=== PATIENT | female | born 1955 | race Caucasian/White ===

== ENCOUNTER 2020-03-25 22:33 | Inpatient (IN) | payer BC ==
--- NOTE | 2020-03-25 22:56 | ED ---
Recheck HPI - General Chief Complaint: Abdominal Pain Stated Complaint: COVID+ Time Seen by Provider: 03/25/20 22:37 Source: patient, EMS Mode of arrival: EMS - Related Data Home Medications Medication Instructions Recorded Confirmed Atorvastatin [Lipitor] 20 mg PO HS 03/25/20 03/25/20 Ciprofloxacin HCl [Cipro] 500 mg PO Q12HR 03/25/20 03/25/20 amLODIPine [Norvasc] 10 mg PO DAILY 03/25/20 03/25/20 metroNIDAZOLE [Flagyl] 500 mg PO BID 03/25/20 03/25/20 Allergies Allergy/AdvReac Type Severity Reaction Status Date / Time No Known Allergies Allergy Verified 03/25/20 22:52 Review of Systems ROS Statement: Those systems with pertinent positive or pertinent negative responses have been documented in the HPI. ROS Other: All systems not noted in ROS Statement are negative. Past Medical History Past Medical History: Hyperlipidemia, Hypertension History of Any Multi-Drug Resistant Organisms: None Reported Past Surgical History: Cholecystectomy, Orthopedic Surgery Smoking Status: Former smoker Past Alcohol Use History: None Reported Past Drug Use History: None Reported Course Vital Signs 03/25/20 22:36 Temperature 98.3 F Pulse Rate 85 Respiratory 18 Rate Blood Pressure 175/56 O2 Sat by Pulse 97 Oximetry Disposition Clinical Impression: Abdominal pain, Coronavirus infection Disposition: ADMITTED IP TO THIS HOSP Condition: Fair Is patient prescribed a controlled substance at d/c from ED?: No Referrals: Troy Hernandez MD [Primary Care Provider] - 1-2 days
[2020-03-25] MEDS ORDERED: ONDANSETRON 4 MG/2 ML VIAL IVP PRN (23:28)
[2020-03-25] MEDS ORDERED: NALOXONE 0.4 MG/ML 1 ML VIAL IV PRN (23:28)
[2020-03-25] MEDS ORDERED: MORPHINE SULFATE 4 MG/ML SYRINGE IV PRN (23:28)
[2020-03-25] MEDS: SODIUM CHLORIDE 0.9% 1,000 ML IV SCH (23:36)
[2020-03-26] MEDS: SODIUM CHLORIDE 0.9% 1,000 ML IV SCH (08:30)
[2020-03-26] MEDS ORDERED: PANTOPRAZOLE 40 MG/10 ML VIAL IV SCH (09:00)
[2020-03-26] MEDS ORDERED: metroNIDAZOLE 500 MG TAB PO SCH (10:15)
[2020-03-26] MEDS ORDERED: amLODIPine 10 MG TAB PO SCH (10:15)
[2020-03-26] MEDS ORDERED: CIPROFLOXACIN HCL 500 MG TAB PO SCH (10:15)
[2020-03-26 14:10] VITALS: RESP 18
[2020-03-26 16:25] LABS: Basophils % (A) 1 %; Eosinophils % (A) 0 %; HCT 32.3 % (34.0-46.0); HGB 11.7 gm/dL (11.4-16.0); Lymphocytes # (A) 0.7 k/uL (1.0-4.8); Lymphocytes % (A) 22 %; MCH 30.8 pg (25.0-35.0); MCHC 36.4 g/dL (31.0-37.0); MCV 84.7 fL (80.0-100.0); Mean Platelet Volume 6.6; Monocytes # (A) 0.2 k/uL (0-1.0); Monocytes % (A) 7 %; Neutrophils # (A) 2.2 k/uL (1.3-7.7); Neutrophils % (A) 68 %; Platelet Count 243 k/uL (150-450); RBC 3.81 m/uL (3.80-5.40); WBC 3.2 k/uL (3.8-10.6)
[2020-03-26 16:29] LABS: ALT 21 U/L (4-34); AST 27 U/L (14-36); African American GFR (CKD) >90 (>60 ml/min/1.73 sqM); Albumin 3.9 g/dL (3.5-5.0); Albumin/Globulin Ratio 1.3; Alkaline Phosphatase 104 U/L (38-126); Anion Gap 10 mmol/L; Blood Urea Nitrogen 6 mg/dL (7-17); C Reactive Protein <5.0 mg/L (<10.0); Calcium 8.5 mg/dL (8.4-10.2); Carbon Dioxide 24 mmol/L (22-30); Chloride 94 mmol/L (98-107); Globulin 2.9 g/dL; Glucose 101 mg/dL (74-99); Non-African American GFR(CKD) >90 (>60 ml/min/1.73 sqM); Potassium 3.4 mmol/L (3.5-5.1); Sodium 128 mmol/L (137-145); Total Bilirubin 0.8 mg/dL (0.2-1.3); Total Protein 6.8 g/dL (6.3-8.2)
[2020-03-26] MEDS: POTASSIUM CHLORIDE ER 10 MEQ TAB.ER.PRT PO SCH ×2 (17:30→18:06)
[2020-03-26 17:53] VITALS: BP 135/76; PULSE 77; TEMP 97.5
--- NOTE | 2020-03-26 20:12 | P.HPIM ---
History of Present Illness H&P Date: 03/26/20 Chief Complaint: Diarrhea History of presenting complaint: This is a pleasant 64-year-old patient was transferred here from [facility]. Chronic stable medical conditions include hypertension, hyperlipidemia. She now presents with 1 week of diarrhea. Somewhat described as watery and mushy. Maybe a touch of blood which is felt more from local irritation. No abdominal pain. She gone to see her family doctor who treated for diverticulitis with Flagyl and Cipro patient took it for 2 days. She did have a computed tomography scan of the [facility] reported to be otherwise negative. She also tested positive for COVID. Initially presented to [facility] for when she was transferred here. Patient denies any respiratory symptoms. No headache. No loss of smell or taste. Patient's is also tested positive for COVID. Today patient is only had 1 bowel movement. Patient had 100% of her lunch. Overall feeling better. Review of systems: GEN.: Tired EYES: None HEENT: None NECK: None RESPIRATORY: None CARDIOVASCULAR: None GASTROINTESTINAL: As above GENITOURINARY: None MUSCULOSKELETAL: None LYMPHATICS: None HEMATOLOGICAL: None PSYCHIATRY: None NEUROLOGICAL: None Past medical history to include: Hypertension, hyperlipidemia Social history: Lives with her . Did smoke in the past. No alcohol. Family history: Reviewed, noncontributory to presentation Physical examination: VITAL SIGNS: 98.3, 85, 18, 135/64, 96% room air GENERAL: BMI 21.9, sitting up, comfortable. EYES: Pupils equal. Conjunctiva normal. HEENT: External appearance of nose and ears normal, oral cavity grossly normal. NECK: JVD not raised; masses not palpable. HEART: First and second heart sounds are normal; no edema. LUNGS: Respiratory rate normal; clear to auscultation. ABDOMEN: Soft, nontender, liver spleen not palpable, no masses palpable. PSYCH: Alert and oriented x3; mood and affect normal. NEUROLOGICAL: Cranial nerves grossly intact; no facial asymmetry, power and sensation grossly intact. LYMPHATICS: No lymph nodes palpable in the axilla and neck INVESTIGATIONS, reviewed in the clinical context: Patient labs from [facility] include: Sodium 127 potassium 3.6 creatinine 0.8 AST 30 ALT 25 albumin 4.7 white count 4.3 hemoglobin 12.5 platelets 237 troponin I less than 0.012 lipase 209 COVID 19 positive EKG tracing personally reviewed by me-normal sinus rhythm Assessment: -Acute COVID 19 infection manifesting primarily as gastroenteritis and diarrhea as well as a manifestation of the COVID. Patient's pulse oxing well. No fever. No white count. Patient did receive 2 days of ciprofloxacin and Flagyl by the PCP. She did report it was no diverticulitis on the computed tomography scan. Has had no abdominal pain. -Hyperlipidemia -Essential hypertension Plan: Patient did tolerate her lunch. The see how she does with supper she can be discharged. She'll continue with quarantine. Questions answered. She is to return if any clinical picture changes. Past Medical History Past Medical History: Hyperlipidemia, Hypertension History of Any Multi-Drug Resistant Organisms: None Reported Past Surgical History: Cholecystectomy, Orthopedic Surgery Past Anesthesia/Blood Transfusion Reactions: No Reported Reaction Smoking Status: Former smoker Past Alcohol Use History: None Reported Past Drug Use History: None Reported Medications and Allergies Home Medications Medication Instructions Recorded Confirmed Type Atorvastatin [Lipitor] 20 mg PO HS 03/25/20 03/25/20 History Ciprofloxacin HCl [Cipro] 500 mg PO Q12HR 03/25/20 03/25/20 History amLODIPine [Norvasc] 10 mg PO DAILY 03/25/20 03/25/20 History metroNIDAZOLE [Flagyl] 500 mg PO BID 03/25/20 03/25/20 History Allergies Allergy/AdvReac Type Severity Reaction Status Date / Time No Known Allergies Allergy Verified 03/25/20 22:52 Physical Exam Vitals: Vital Signs Temp Pulse Pulse Resp BP BP Pulse Ox 03/26/20 10:00 97.9 F 68 16 149/53 96 03/26/20 05:27 99.2 F 73 16 131/69 94 L 03/26/20 05:10 75 16 03/26/20 02:05 97.9 F 75 16 134/78 96 03/26/20 00:30 63 18 135/64 96 03/25/20 23:28 96 03/25/20 22:36 98.3 F 85 18 175/56 97 Intake and Output 03/25/20 03/26/20 03/26/20 22:59 06:59 14:59 Intake Total 700 Balance 700 Intake: Intake, IV Titration 400 Amount Sodium Chloride 0.9% 1, 400 000 ml @ 100 mls/hr IV . Q10H LOVELY Rx#:[id number] Oral 300 Other: Voiding Method Toilet # Voids 2 Weight 67.132 kg 67.132 kg Results CBC & Chem 7: 03/26/20 15:52 03/26/20 15:52
--- NOTE | 2020-03-26 20:14 | P.DS ---
Providers Date of admission: 03/25/20 23:30 Expected date of discharge: 03/26/20 Attending physician: Bill Natarajan Primary care physician: [facility] Course: Chief Complaint: Diarrhea History of presenting complaint: This is a pleasant 64-year-old patient was transferred here from [facility]. Chronic stable medical conditions include hypertension, hyperlipidemia. She now presents with 1 week of diarrhea. Somewhat described as watery and mushy. Maybe a touch of blood which is felt more from local irritation. No abdominal pain. She gone to see her family doctor who treated for diverticulitis with Flagyl and Cipro patient took it for 2 days. She did have a computed tomography scan of the [facility] reported to be otherwise negative. She also tested positive for COVID. Initially presented to [facility] for when she was transferred here. Patient denies any respiratory symptoms. No headache. No loss of smell or taste. Patient's is also tested positive for COVID. Today patient is only had 1 bowel movement. Patient had 100% of her lunch. Overall feeling better. Patient did tolerate a supper also. Had only 1 bowel movement today. Feeling well. Pulse ox is good. No fever. Discussed with the patient. She will be discharged. COVID 19 quarantine precautions. Past medical history to include: Hypertension, hyperlipidemia Social history: Lives with her . Did smoke in the past. No alcohol. Family history: Reviewed, noncontributory to presentation Physical examination: VITAL SIGNS: 97.5, 77, 18, 135/76, 96% room air GENERAL: BMI 21.9, sitting up, comfortable. EYES: Pupils equal. Conjunctiva normal. HEENT: External appearance of nose and ears normal, oral cavity grossly normal. NECK: JVD not raised; masses not palpable. HEART: First and second heart sounds are normal; no edema. LUNGS: Respiratory rate normal; clear to auscultation. ABDOMEN: Soft, nontender, liver spleen not palpable, no masses palpable. PSYCH: Alert and oriented x3; mood and affect normal. INVESTIGATIONS, reviewed in the clinical context: White count 3.2 hemoglobin 11.7 lymphocytes 0.7 d-dimer 0.82 sodium 128 potassium 3.4 creatinine 0.69 CRP less than 5 Patient labs from [facility] include: Sodium 127 potassium 3.6 creatinine 0.8 AST 30 ALT 25 albumin 4.7 white count 4.3 hemoglobin 12.5 platelets 237 troponin I less than 0.012 lipase 209 COVID 19 positive EKG tracing personally reviewed by me-normal sinus rhythm Assessment: -Acute COVID 19 infection manifesting primarily as gastroenteritis and diarrhea as well as a manifestation of the COVID. Patient's pulse oxing well. No fever. No white count. Patient did receive 2 days of ciprofloxacin and Flagyl by the PCP. She did report it was no diverticulitis on the computed tomography scan. Has had no abdominal pain. -Hyperlipidemia -Essential hypertension -Hypokalemia-replaced -Hyponatremia, from decreased salt intake. Disposition: Home Labs: BMP to be checked tomorrow. Patient Condition at Discharge: Fair Plan - Discharge Summary Discharge Rx Participant: No New Discharge Prescriptions: No Action metroNIDAZOLE [Flagyl] 500 mg PO BID amLODIPine [Norvasc] 10 mg PO DAILY Ciprofloxacin HCl [Cipro] 500 mg PO Q12HR Atorvastatin [Lipitor] 20 mg PO HS Discharge Medication List Atorvastatin [Lipitor] 20 mg PO HS 03/25/20 [History] Ciprofloxacin HCl [Cipro] 500 mg PO Q12HR 03/25/20 [History] amLODIPine [Norvasc] 10 mg PO DAILY 03/25/20 [History] metroNIDAZOLE [Flagyl] 500 mg PO BID 03/25/20 [History] Follow up Appointment(s)/Referral(s): Kelly Berumen [facility] [REFERRING] - 1 Week Patient Instructions/Handouts: Hypokalemia (DC) Activity/Diet/Wound Care/Special Instructions: RECHECK POTASSIUM LEVEL 03/27/2020 Discharge Disposition: HOME SELF-CARE
[2020-03-26] MEDS ORDERED: ATORVASTATIN 20 MG TAB PO SCH (21:00)
== END 2020-03-26 19:37 | disposition home or self-care (01) | DRG 178 ==
LOC: EC 22:33 → 4SSUR 23:30
PROVIDERS: ADMIT Hospitalist; ATTEND Hospitalist
DX: U07.1 COVID-19 (principal); E87.1 Hypo-osmolality and hyponatremia; K52.9 Noninfective gastroenteritis and colitis, unspecified; I10 Essential (primary) hypertension; E87.6 Hypokalemia; E78.5 Hyperlipidemia, unspecified; Z79.899 Other long term (current) drug therapy
CPT/HCPCS: 80053; 85025; 85379; 86140; 99285